=== PATIENT | female | born 1995 | race Caucasian/White ===

== ENCOUNTER → 2020-04-28 14:27 | Outpatient (BNVA) | payer MEDICAID, SELFPAY | PROVIDERS: Family Provider Family Medicine; Visit Provider Obstetrics & Gynecology | DX: Z32.01 Encounter for pregnancy test, result positive (principal) | CPT/HCPCS: 81025 ==

== ENCOUNTER 2020-05-21 11:57 | Emergency (ER) | payer MEDICAID, SELFPAY ==
[2020-05-21 12:07] VITALS: BP 143/84; PULSE 108; RESP 16; TEMP 36.2; O2SAT 99; BMI 31.6
--- NOTE | 2020-05-21 12:28 | US_ITS ---
WS: [id number] ULTRASOUND EARLY TECHNIQUE: Transabdominal sonography of the pelvis was performed. CLINICAL INFORMATION: bleeding,cramping LMP: 02/16/2020 Beta hCG: Unknown. COMPARISON: None. FINDINGS: UTERUS AND GESTATIONAL SAC Intrauterine gestations: Cervix measures 4.4 cm. Intrauterine gestational sac with pole. No cardiac activity visualized. No movement visua lized. Findings compatible with demise. Estimated gestational age: 8w6d [place] rump length (CRL): 2.2 cm. heart motion: 0 BPM. Subchorionic hemorrhage: None. OVARIES Right ovary: Normal. Left ovary: Normal. FREE FLUID None. US/ OB limited [id number] IMPRESSION: 1. Findings compatible with demise. Recommend interval follow-up for con firmation. 2. Normal adnexa and ovaries.
--- NOTE | 2020-05-21 12:28 | ED_ITS ---
HPI - General: Chief complaint: OB/Uterine Contractions Stated complaint: +PREG TEST 2 MO AGO, NOW BLEEDING/CLOTTING Time Seen by Provider: 05/21/20 12:26 History of Present Illness: HPI Narrative: Patient said she tested for about 2 months ago she was positive did 3 separate test positive each time started with some cramping and bleeding at this morning when she woke up had 1 small clot and some mild to darker blood does have slight cramping right now no bleeding presently denies vaginal discharge patient is 5 para 3, 1 miscarriage and current MD Complaint: vaginal bleeding (With cramping) Onset (ago): hour(s) Pain Consistency: colicky Location: abdomen Severity: mild Severity scale (1-10): 2 Quality: Cramping Exacerbating factors: none Vaginal discharge: none Vaginal bleeding: light Patient : Yes OB History - Current : no complications OB History - Previous Pregnancies: miscarriage care: none Associated symptoms: Reports no associated symptoms; Deny abdominal pain, headache(s), nausea or vomiting Review of Systems Const: Denies: fever(s), chills or body aches Eyes: Denies: change in vision or blurry vision ENMT: Denies: throat pain or nasal congestion Card: Denies: chest pain or dyspnea on exertion Resp: Denies: dyspnea, productive cough or non-productive cough GI: Denies: abdominal pain, nausea or vomiting : Reports: vaginal bleeding and other (Cramping) Musc: Denies: extremity pain Skin/Breast: Denies: rash Neuro: Denies: headache(s) Psych: Denies: anxiety or depression South/Lymph: Denies: easy bruising PFSH ED PFSH: Family History (Updated 05/01/20 @ 09:08 by Jeny Dukes) Denies family history of Colon cancer Ovarian cancer Diabetes Clotting disorder Heart disease Hypercholesteremia Breast cancer Bleeding disorder Hypertension Uterine cancer Thyroid disease Stroke Social History (Updated 05/01/20 @ 09:19 by Jeny Dukes) Smoking and tobacco status: former smoker Quit status (tobacco): has quit using tobacco Year quit tobacco: 2017 Alcohol intake: never Additional social history: - Tobacco use: former, quit in 2017 Alcohol use: Socially prior to Drug use: Marijuana Female Reproductive History: Para: 1 (1011) Spontaneous abortions: Yes Physical Exam Const: COMMON NORMALS: no acute distress, average body habitus and patient oriented x3 HENMT: COMMON NORMALS: normocephalic HEAD & SCALP: normal to inspection and normocephalic FACE & SINUS: normal facial exam Eye: COMMON NORMALS: conjunctivae normal GENERAL EYE: appearance normal, both eyes and all related structures CONJUNCTIVA: Yes conjunctivae normal Neck/C-Spine: COMMON NORMALS: no JVD Chest: COMMONS NORMALS: normal inspection of the chest Resp: COMMON NORMALS: normal respiratory effort Cardio: COMMON NORMALS: no JVD, regular rate and regular rhythm RATE: regular rate RHYTHM: regular rhythm GI: INSPECTION: Yes normal to inspection Extremity: COMMON NORMALS: normal to inspection and full ROM Neuro: COMMON NORMALS: patient oriented x3 Course Vital Signs: Vital signs: Vital Signs Temperature 97.2 F L 05/21/20 12:07 Pulse Rate 108 H 05/21/20 12:07 Respiratory Rate 16 05/21/20 12:07 Blood Pressure 143/84 05/21/20 12:07 Pulse Oximetry 99 05/21/20 12:07 MDM - OB/Uterine Contractions MDM Narrative: Medical decision making narrative: Discussed lab results test and radiology results with Dr. Burk. Discharge Plan Discharge Prescriptions: No Action No Known Home Medications RF: 0 Coding Level of Care Code ED Mail Distribution Scheme Examiner for Chg Fwd Exam Comprehensive
--- NOTE | 2020-05-21 13:40 | DCPLANNER ---
brand sales manager was asked to schedule a follow up appointment for patient with [facility]. brand sales manager called [facility], spoke with Sveta, a follow up appointment was scheduled for Tuesday, May 23, 2020 at 12:[address] Solis. brand sales manager informed ED physician, and patient of the scheduled appointment.
--- NOTE | 2020-06-11 13:24 | DCPLANNER ---
Patient had a follow up appointment scheduled for 05.23.20 with [facility] - patient did attend appointment.
== END 2020-05-21 13:51 | disposition home or self-care (01) ==
PROVIDERS: Emergency Provider Nurse Practitioner Family
DX: O20.9 Hemorrhage in early pregnancy, unspecified (principal); Z87.891 Personal history of nicotine dependence
CPT/HCPCS: 12345; 76815; 76817; 99281; 99283

== ENCOUNTER → 2020-05-23 13:57 | Outpatient (BNVA) | payer MEDICAID, SELFPAY | PROVIDERS: Visit Provider Obstetrics & Gynecology | DX: O03.9 Complete or unspecified spontaneous abortion without complication (principal) | CPT/HCPCS: 76857; 84702; 86850; 86900 ==

== ENCOUNTER 2022-05-05 07:26 | Outpatient (CLI) | payer SELFPAY ==
[2022-05-05] VITALS (8 sets, daily range): BP systolic 102–142; BP diastolic 62–68; PULSE 81–97; RESP 16; TEMP 35.4; BMI 36.4
--- NOTE | 2022-05-05 07:56 | US_ITS ---
WS: [id number] LIMITED OBSTETRICAL ULTRASOUND HISTORY: No care COMPARISON: None available. Presentation: Cephalic. Cervix: Closed and normal length. Simple cyst in the RIGHT adnexa measures 2.0 cm at its maximum diam eter. Placenta: Posterior, no previa. Grade: 1 HEART: FHR of 136 BPM. measurements: BPD = 6.2 cm = 25w1d HC = 23.7 cm = 25w5d AC = 20.5 cm = 25w1d FL = 4.6 cm = 25w2d MAURILIO: 13.8 cm; maximum vertical pocket 4.6 cm. EFW: 789 g; 50th %. AGA by ultrasound: 25w2d FRANCISCO by ultrasound: 08/16/2022 US/US OB limited [id number] IMPRESSION: 1. Single intrauterine gestation of 25 weeks 2 days with an EDC of 08/16/2022. 2. Normal amniotic fluid. 3. Normal cardiac activity.
[2022-05-05 08:17] LABS: Bilirubin Urine Neg (Negative); Blood Urine Neg (Negative); Glucose Urine UA Norm (Normal); Ketones Urine Negative (Negative); Leukocyte Esterase Urine 2+ (Negative); Nitrate Urine Negative (Negative); Protein Urine Neg (Negative); Specific Gravity, Urine 1.015 (1.005-1.030); Urine Appearance Clear (CLEAR); Urine Color Light Yellow (Yellow); Urobilinogen Urine Norm (Negative); pH Urine 7 (5-7)
[2022-05-05 08:22] LABS: Amphetamines Screen Urine Negative (Negative); Barbiturates Screen Urine Negative (Negative); Benzodiazepines Screen Urine Negative (Negative); Cocaine Screen Urine Negative (Negative); Opiate Screen Urine Negative (Negative); PCP Screen Urine Negative (Negative); THC Screen Urine Positive (Negative)
[2022-05-05 08:28] LABS: RBC Urine 0-4 /hpf (0-2)
[2022-05-05 08:29] LABS: Bacteria Urine 3+ /hpf; Squamous Epithelial Cell Urine 0-4 /hpf (0-5)
[2022-05-05 08:30] LABS: Add Urine Culture? Yes
[2022-05-05 09:16] LABS: Rubella IgG 25.3 IU/mL (0.0-10.0); Thyroid Stimulating Hormone 1.45 uIU/mL (0.27-4.20)
[2022-05-05 09:22] LABS: Rapid Plasma Reagin Syphilis Nonreactive (Nonreactive)
[2022-05-05 09:40] LABS: Hepatitis B Surface Antigen Non-Reactive (Nonreactive)
[2022-05-05] MEDS: cefTRIAXone 2,000 MG in sodium chloride 0.9% (plus) 50 ML 100 MG IV (09:40)
[2022-05-05 09:42] LABS: HIV 1 & 2 Antigen Non-Reactive (Non-Reactiv)
[2022-05-05 09:43] LABS: HIV 1 & 2 Antibody Non-Reactive (Non-Reactiv)
== END 2022-05-05 10:11 | disposition home or self-care (01) ==
LOC: OPOB 07:35 → OBGYN 07:36
PROVIDERS: Visit Provider Obstetrics & Gynecology
DX: O26.899 Other specified pregnancy related conditions, unspecified trimester (principal); Z3A.00 Weeks of gestation of pregnancy not specified; R10.9 Unspecified abdominal pain
CPT/HCPCS: 36415; 76815; 80306; 81001; 84443; 86592; 86762; 86850; 86900; 87077; 87086; 87186; 87340; 87491; 87591; 87806; 99211; J0696

== ENCOUNTER → 2022-06-24 12:01 | Day surgery (SDC) | payer BC, MEDICAID, SELFPAY ==
[2022-06-24 13:22] VITALS: BP 129/71; PULSE 114; RESP 18; TEMP 35.9; O2SAT 96
[2022-06-24 13:23] VITALS: BP 129/71; PULSE 114; RESP 18; TEMP 35.9; O2SAT 96
== END ==
PROVIDERS: PCP Family Medicine; Visit Provider Family Medicine
DX: O09.93 Supervision of high risk pregnancy, unspecified, third trimester (principal); Z3A.00 Weeks of gestation of pregnancy not specified; Z67.91 Unspecified blood type, Rh negative
CPT/HCPCS: 36415; 86850; 86900; 90384; 96372

== ENCOUNTER 2022-07-07 11:21 | Outpatient (CLI) | payer BC, MEDICAID, SELFPAY ==
[2022-07-07 11:53] VITALS: BP 110/72; PULSE 112
[2022-07-07 11:59] VITALS: RESP 16
[2022-07-07 12:07] LABS: Nitrazine Paper, PH Negative
[2022-07-07 12:09] VITALS: BMI 37.9
[2022-07-07 12:19] VITALS: BP 125/71; PULSE 115
[2022-07-07 12:35] LABS: Amphetamines Screen Urine Negative (Negative); Barbiturates Screen Urine Negative (Negative); Benzodiazepines Screen Urine Negative (Negative); Cocaine Screen Urine Negative (Negative); Opiate Screen Urine Negative (Negative); PCP Screen Urine Negative (Negative); THC Screen Urine Positive (Negative)
[2022-07-07 12:38] VITALS: BP 111/73; PULSE 81
[2022-07-07 12:45] LABS: Urine Appearance Cloudy (CLEAR); Urine Color Yellow (Yellow)
[2022-07-07 12:46] LABS: Add Urine Culture? Yes; Bacteria Urine 4+ /hpf; Bilirubin Urine Neg (Negative); Blood Urine Neg (Negative); Glucose Urine UA Norm (Normal); Ketones Urine Negative (Negative); Leukocyte Esterase Urine 2+ (Negative); Nitrate Urine Negative (Negative); Protein Urine Neg (Negative); Specific Gravity, Urine 1.015 (1.005-1.030); Squamous Epithelial Cell Urine TOO NUMEROUS TO CNT /hpf (0-5); Sulfosalicylic Acid Urine Negative (Negative); Urobilinogen Urine Norm (Negative); pH Urine 9 (5-7)
[2022-07-07 12:58] VITALS: BP 119/66; PULSE 117
[2022-07-07 13:13] VITALS: BP 119/66; PULSE 117; RESP 16; TEMP 36.5
== END 2022-07-07 13:13 | disposition home or self-care (01) ==
LOC: OPOB 11:29 → OBGYN 11:31
PROVIDERS: PCP Family Medicine; Visit Provider Family Medicine
DX: O26.899 Other specified pregnancy related conditions, unspecified trimester (principal); Z3A.00 Weeks of gestation of pregnancy not specified; N89.8 Other specified noninflammatory disorders of vagina
CPT/HCPCS: 59025; 80306; 81001; 83986; 87086; 99211

== ENCOUNTER 2022-07-16 07:45 | Outpatient (CLI) | payer BC, MEDICAID, SELFPAY ==
[2022-07-16] VITALS (11 sets, daily range): BP systolic 102–150; BP diastolic 59–76; PULSE 80–122; RESP 16–18
[2022-07-16 08:57] LABS: Basophils % 0.4 %; Eosinophils # 0.1 10^3/uL (0.0-0.8); Eosinophils % 0.6 %; Hematocrit 31.4 % (37.0-47.0); Hemoglobin 10.4 g/dL (11.5-15.3); Lymphocytes # 2.1 10^3/uL (0.8-4.8); Lymphocytes % 19.8 %; Mean Corpuscular HGB Conc 33.1 g/dL (30.0-36.0); Mean Corpuscular Volume 93.7 fl (81-99); Mean Platelet Volume 9.8 fL (7.4-10.4); Monocytes # 0.7 10^3/uL (0.2-0.9); Monocytes % 6.8 %; Neutrophils # 7.76 10^3/uL (1.8-7.7); Neutrophils % 71.9 %; Nucleated Red Blood Cells % 0 %; Platelet Count 157 10^3/cmm (130-400); Red Blood Count 3.35 10^6/uL (4.1-5.3); Red Cell Distribution Width 13.3 % (12.1-15.1); White Blood Count 10.8 10^3/uL (4.0-10.0)
[2022-07-16] MEDS: lactated ringers 1,000 ML 999 ML IV (08:58)
[2022-07-16 09:02] LABS: Bilirubin Urine Neg (Negative); Blood Urine 2+ (Negative); Glucose Urine UA Norm (Normal); Ketones Urine 3+ (Negative); Nitrate Urine Negative (Negative); Protein Urine Trace (Negative); Urine Appearance Cloudy (CLEAR); Urine Color Yellow (Yellow); Urobilinogen Urine 1 mg/dL (Negative); pH Urine 6 (5-7)
[2022-07-16 09:03] LABS: Add Urine Microscopic? YES; Leukocyte Esterase Urine 2+ (Negative)
[2022-07-16 09:17] LABS: Add Urine Culture? No; Bacteria Urine 4+ /hpf; Squamous Epithelial Cell Urine TOO NUMEROUS TO CNT /hpf (0-5)
[2022-07-16 09:28] LABS: Alanine Aminotransferase 6 U/L (0-33); Albumin Level 3.5 g/dL (3.5-5.2); Alkaline Phosphatase 118 U/L (35-105); Anion Gap 13.8 (5-19); Aspartate Amino Transferase 12 U/L (0-32); Blood Urea Nitrogen 6 mg/dL (6-20); Calcium 8.6 mg/dL (8.5-10.5); Carbon Dioxide 22 mmol/L (22-29); Chloride 102 mmol/L (98-107); Globulin 2.7 g/dL (1.3-4.6); Glomerular Filtration Rate 194.5 mL/min (90-130); Glucose 77 mg/dL (65-115); Osmolality Calculated 274 mOsm/kg (285-295); Potassium 3.8 mmol/L (3.5-5.1); Sodium 134 mmol/L (136-145); Total Bilirubin 0.4 mg/dL (0.15-1.2); Total Protein 6.2 g/dL (6.6-8.7); Uric Acid 5.9 mg/dL (2.4-5.7)
[2022-07-16 09:39] LABS: Urine Creatinine 179 mg/dL (28-217)
[2022-07-16 09:41] LABS: UPRO/UCREAT Ratio 0.19 mg/mg CR; Urine Protein Random 34 mg/dL
[2022-07-16] MEDS: ondansetron 2 mg/ML SDV 2 mL 4 MG IVP (10:05)
--- NOTE | 2022-07-17 10:54 | PC.NURSE ---
PATIENT BROUGHT 24 URINE BACK TODAY AT 1050. THIS GENERAL FARM MANAGER TOOK IT DOWN TO LAB.
[2022-07-17 11:42] LABS: Total Volume, Urine 725 mL; Urine Total Protein 18.8 mg/dL (0-150); Urine Total Protein 24 Hour 136.3 mg/24hr (0-150)
--- NOTE | 2022-07-17 12:12 | PC.NURSE ---
THIS FLORIST CALLED DR. ZAVALA WITH 24 HOUR URINE RESULTS, NO NEW ORDERS AT THIS TIME.
== END 2022-07-16 10:50 | disposition home or self-care (01) ==
LOC: OPOB 07:45 → OBGYN 07:55
PROVIDERS: PCP Family Medicine; Visit Provider Family Medicine
DX: O21.9 Vomiting of pregnancy, unspecified (principal); Z3A.00 Weeks of gestation of pregnancy not specified
CPT/HCPCS: 36415; 59025; 80053; 81001; 82570; 84156; 84550; 85025; 87086; 99211; J2405; J7120

== ENCOUNTER → 2022-07-20 11:22 | Outpatient (BNVA) | payer BC, MEDICAID, SELFPAY | PROVIDERS: PCP Family Medicine; Visit Provider Family Medicine | DX: Z34.90 Encounter for supervision of normal pregnancy, unspecified, unspecified trimester (principal) | CPT/HCPCS: 87081 ==

== ENCOUNTER 2022-07-21 09:13 | Outpatient (CLI) | payer BC, MEDICAID, SELFPAY ==
--- NOTE | 2022-07-21 09:30 | US_ITS ---
WS: [id number] LIMITED OBSTETRICAL ULTRASOUND HISTORY: Measuring LGA - MAURILIO/EFW COMPARISON: 05/05/2022 Presentation: Cephalic. Cervix: Closed and normal length. Placenta: Fundal and anterior. No previa or abruption. Grade: 1 HEART: FHR of 129 BPM. measurements: BPD = 8.8 cm = 35w5d; 32nd percentile HC = 32.2 cm = 36w3d 15th percentile AC = 33.3 cm = 37w1d 73rd percentile FL = 7.5 cm = 38w1d 81st percentile MAURILIO: 24.6 cm EFW: 3139 g; 75th %. AGA by ultrasound: 37w5d FRANCISCO by ultrasound: 08/06/2022 Femur length is measuring slightly greater than the remaining parameters. Appropriate growth since e prior ultrasound of 05/05/2022. US/US OB limited [id number] IMPRESSION: 1. Single intrauterine gestation of 37 weeks 5 days with an EDC of 08/06/2022. 2. Estimated weight at the 75th percentile for age. 3. Appropriate growth since 05/05/2022.
== END 2022-07-21 09:14 | disposition home or self-care (01) ==
LOC: RAD 09:15
PROVIDERS: PCP Family Medicine; Visit Provider Family Medicine
DX: O09.93 Supervision of high risk pregnancy, unspecified, third trimester (principal); Z3A.37 37 weeks gestation of pregnancy
CPT/HCPCS: 76815; 80307; 82950; 85025; 87086

== ENCOUNTER 2022-07-26 09:40 | Outpatient (CLI) | payer BC, MEDICAID, SELFPAY ==
[2022-07-26 09:51] VITALS: BP 113/69; PULSE 87
[2022-07-26 10:01] VITALS: RESP 15; TEMP 36.1
[2022-07-26 10:02] VITALS: BMI 38.2
[2022-07-26 10:03] LABS: Nitrazine Paper, PH Negative
[2022-07-26 10:12] LABS: Actim Prom Negative
[2022-07-26 10:23] VITALS: BP 98/54; PULSE 90
[2022-07-26 10:28] LABS: Bilirubin Urine Neg (Negative); Blood Urine 2+ (Negative); Glucose Urine UA Norm (Normal); Ketones Urine Negative (Negative); Leukocyte Esterase Urine 2+ (Negative); Nitrate Urine Negative (Negative); Protein Urine Neg (Negative); RBC Urine RARE /hpf (0-2); Sulfosalicylic Acid Urine Negative (Negative); Urine Appearance Hazy (CLEAR); Urine Color Straw (Yellow); Urobilinogen Urine Norm (Negative); pH Urine 8 (5-7)
[2022-07-26 10:29] LABS: Add Urine Culture? No; Bacteria Urine 2+ /hpf; Squamous Epithelial Cell Urine 25-40 /hpf (0-5)
[2022-07-26 10:36] VITALS: BP 121/69; PULSE 87
[2022-07-26 10:45] VITALS: BP 121/69; PULSE 87
== END 2022-07-26 10:45 | disposition home or self-care (01) ==
LOC: OPOB 09:41 → OBGYN 09:44
PROVIDERS: PCP Family Medicine; Visit Provider Family Medicine
DX: O26.899 Other specified pregnancy related conditions, unspecified trimester (principal); Z3A.00 Weeks of gestation of pregnancy not specified; M54.50 Low back pain, unspecified
CPT/HCPCS: 59025; 81001; 83986; 84112; 87086; 99211

== ENCOUNTER 2022-08-04 07:59 | Outpatient (CLI) | payer BC, MEDICAID, SELFPAY ==
[2022-08-04 08:04] VITALS: BP 122/81; PULSE 110
[2022-08-04 08:21] VITALS: RESP 18; BMI 38.2
[2022-08-04 08:24] LABS: Nitrazine Paper, PH Negative
[2022-08-04 08:30] VITALS: BP 117/60; PULSE 100
[2022-08-04 08:49] VITALS: BP 121/62; PULSE 89
== END 2022-08-04 09:00 | disposition home or self-care (01) ==
LOC: OPOB 07:59 → OBGYN 08:00
PROVIDERS: PCP Family Medicine; Visit Provider Family Medicine
DX: O26.899 Other specified pregnancy related conditions, unspecified trimester (principal); Z3A.00 Weeks of gestation of pregnancy not specified; N89.8 Other specified noninflammatory disorders of vagina
CPT/HCPCS: 59025; 83986; 99211

== ENCOUNTER 2022-08-11 05:55 | Inpatient (IN) | payer BC, MEDICAID, SELFPAY ==
[2022-08-11] VITALS (55 sets, daily range): BP systolic 96–211; BP diastolic 53–104; PULSE 58–131; RESP 18; TEMP 36–36.4; O2SAT 91–100; BMI 37.5
[2022-08-11 06:24] LABS: Basophils % 0.3 %; Eosinophils # 0.2 10^3/uL (0.0-0.8); Eosinophils % 1.4 %; Hematocrit 32.4 % (37.0-47.0); Hemoglobin 10.6 g/dL (11.5-15.3); Lymphocytes % 24.8 %; Mean Corpuscular HGB Conc 32.7 g/dL (30.0-36.0); Mean Corpuscular Hemoglobin 29.9 pg (28.0-34.0); Mean Corpuscular Volume 91.5 fl (81-99); Mean Platelet Volume 10.5 fL (7.4-10.4); Monocytes # 0.7 10^3/uL (0.2-0.9); Nucleated Red Blood Cells % 0 %; Platelet Count 170 10^3/cmm (130-400); Red Blood Count 3.54 10^6/uL (4.1-5.3); White Blood Count 12.1 10^3/uL (4.0-10.0)
[2022-08-11 06:46] LABS: Amphetamines Screen Urine Negative (Negative); Barbiturates Screen Urine Negative (Negative); Benzodiazepines Screen Urine Negative (Negative); Cocaine Screen Urine Negative (Negative); Opiate Screen Urine Negative (Negative); PCP Screen Urine Negative (Negative); THC Screen Urine Positive (Negative)
--- NOTE | 2022-08-11 07:35 | PM.HP ---
Providers/Chief Complaint Admitting Physician: Sahil Mancilla MD Primary Care Provider: Sahil Mancilla MD Chief Complaint: induction History of Present Illness Radha Vazquez is a 27 year old @ 39.6 weeks by 20 wk US. Preg c/b late transfer of care, h/o gDM, h/o pLTCS, h/o x 3, Rh negative, BV during 1st TM s/p treatment, h/o trichomonas, GBS positive. The patient presents for an elective induction of labor using a Cooks catheter due to desire for a . The patient has had 3 successful 's in the past. The patient cervix was fingertip in clinic. We discussed the possibility of placing a Castanon catheter to induce labor but that it would be difficult to place. The patient currently feels well. She denies any fevers, shortness of breath, cough, chest pain, nausea, vomiting, diarrhea, constipation, vaginal bleeding, leakage of fluid, dysuria. Medications/Allergies Home Medications Medication Instructions Recorded Confirmed Last Taken Type prenat.vits,frederic,[id number] 1 tab PO DAILY 06/21/22 08/11/22 08/10/22 History Allergies Allergy/AdvReac Type Severity Reaction Status Date / Time No Known Allergies Allergy Verified 08/11/22 06:08 PFSH Acute PFSH: Surgical History (Updated 08/11/22 @ 08:22 by Sahil Mancilla MD) H/O section 11/19/[address] Mancilla at [facility] Family History Denies family history of Colon cancer Ovarian cancer Diabetes Clotting disorder Heart disease Hypercholesteremia Breast cancer Bleeding disorder Hypertension Uterine cancer Thyroid disease Stroke Social History Additional social history: - Tobacco use: former, quit in 2017 Alcohol use: Socially prior to Drug use: Marijuana prior to Female Reproductive History: : 7 Para: 1 Spontaneous abortions: Yes Vitals/I&O/Wt Last Vital Signs Pulse 109 H 08/11/22 07:26 Resp 18 08/11/22 05:56 BP 137/86 08/11/22 07:26 O2 Del Method 08/11/22 05:55 Weight last 48 hrs Weight 226 lb Physical Exam Narrative: General: Alert and oriented x3 Eyes: Pupils equal round and reactive to light and accommodation Mouth: Mucous membranes moist, pharynx non-erythematous Cardiac: Regular rate and rhythm without murmurs Lungs: Clear to auscultation bilaterally without wheezes, crackles or rhonchi Abdomen: Soft, non-tender, fundus consistent with gestational age Extremities: Trace edema in the bilateral lower extremities Cervix: 08/09/-5/soft/mid Data 08/11/22 06:15 A&P Assessment and plan (1) Supervision of high risk , unspecified, third trimester: The patient presented for induction using a Cook's catheter. This was placed by myself at approximately 7:30 AM. It was difficult to place, however proper placement was confirmed. There was no bleeding with the procedure. The patient tolerated it well. We will proceed with induction using the Castanon bulb and proceed based on her progress. The patient is aware of possible risk of uterine rupture as well as the possible need for section. heart tones are currently in the mid 130s with moderate variability good accelerations with a category 1 tracing. Contractions are every 5 minutes. Patient is GBS positive we will start ampicillin after the Castanon bulb comes out. Attestations Medical Necessity Statement*: The patient will be here for greater than 2 midnights due to routine intrapartum and management of labor and delivery. Coding Level of Care Code Acute Code for Chg Fwd Diagnoses Supervision of high risk , unspecified, third trimester O09.93
[2022-08-11] MEDS: dextrose 5%-lactated ringers 1,000 ML 125 ML IV ×2 (10:49→21:06)
[2022-08-11] MEDS: oxytocin 30 UNIT/500 ML BAG IV (10:51)
[2022-08-11] MEDS: ampicillin 2,000 MG in sodium chloride 0.9% (plus) 50 ML 100 MG IV (10:59)
[2022-08-11] MEDS: ampicillin 1,000 MG in sodium chloride 0.9% (plus) 50 ML 100 MG IV ×3 (14:59→23:52)
[2022-08-11] MEDS: lactated ringers 1,000 ML 999 ML IV ×2 (18:49→20:00)
[2022-08-11] MEDS: acetaminophen 325 mg Tablet 650 MG PO (18:50)
--- NOTE | 2022-08-11 20:03 | P.ANESASSM_ITS ---
Pre-Anesthetic Assessment Height/Weight: Height 1.65 m Weight 102.512 kg Temp Pulse Resp BP O2 Del Method 97.6 F 76 18 129/60 08/11/22 13:15 08/11/22 20:00 08/11/22 05:56 08/11/22 20:00 08/11/22 05:55 Preop Diagnosis: labor epidural Familial anesthetic complications: none Was Beta Alana taken within 24 hours: N/A Was Clonidine taken within 24 hours: N/A Last Intake: 19:00 Social No alcohol and No tobacco Exam alert, oriented x 3, clear to auscultation bilaterally and regular rate & rhythm Airway Submandibular: within normal limits Cervical ROM: within normal limits Mallampati: Class II Dentition: full Pulmonary None reported CV/HEM None reported None reported Hepatic None reported GI None reported Metabolic None reported Musc/skel None reported Neuropsych None reported Anesthetic Plan ASA status: 2 Anesthesia: Regional (specify below) (epidural) Risk of > 500 ml blood loss (7ml/kg in children): No Medications/Allergies Home Medications Medication Instructions Recorded Confirmed Last Taken Type prenat.vits,frederic,[id number] 1 tab PO DAILY 06/21/22 08/11/22 08/10/22 History Allergies Allergy/AdvReac Type Severity Reaction Status Date / Time No Known Allergies Allergy Verified 08/11/22 06:08 Current Medications Generic Name Dose Route Start Last Admin Trade Name Freq PRN Reason Stop Dose Admin Acetaminophen 650 mg 08/11/22 05:56 08/11/22 18:50 Acetaminophen 325 Mg Tablet PO 650 mg Q6H PRN Administration Mild pain or temp > 100.4 Dextrose/Lactated Ringer's 1,000 mls @ 125 mls/hr 08/11/22 06:00 08/11/22 19:56 Dextrose 5%-Lactated Ringers IV Not Given .Q8H AILEEN Oxytocin 30 unit in 500 mls @ 1 mls/hr 08/11/22 10:30 08/11/22 16:00 Pitocin IV 10 milliunit/min .Q24H AILEEN 10 mls/hr Titration Protocol 1 MILLIUNIT/MIN Ampicillin Sodium 1,000 mg/ 50 mls @ 100 mls/hr 08/11/22 14:45 08/11/22 19:19 Sodium Chloride IV Infused Q4H AILEEN Infusion Protocol Lactated Ringer's 1,000 mls @ 999 mls/hr 08/11/22 18:38 08/11/22 20:00 Lactated Ringers IV 999 mls/hr .Q1H1M PRN Administration See label comments PFSH Anesthesia Surgical History (Updated 08/11/22 @ 08:22 by Sahil Mancilla MD) H/O section 11/19/[address] Mancilla at [facility] in [facility] Family History Denies family history of Colon cancer Ovarian cancer Diabetes Clotting disorder Heart disease Hypercholesteremia Breast cancer Bleeding disorder Hypertension Uterine cancer Thyroid disease Stroke Social History Additional social history: - Tobacco use: former, quit in 2017 Alcohol use: Socially prior to Drug use: Marijuana prior to Female Reproductive History : 7 Para: 1 Spontaneous abortions: Yes Data Anesthesia 08/11/22 06:15 Short CBC 08/11/22 Range/Units 06:15 WBC 12.1 H (4.0-10.0) 10^3/uL Hgb 10.6 L (11.5-15.3) g/dL Hct 32.4 L (37.0-47.0) % MCV 91.5 (81-99) fl Plt Count 170 (130-400) 10^3/cmm Neut % (Auto) 67.0 % Neut # (Auto) 8.10 H (1.8-7.7) 10^3/uL Blood Bank 08/11/22 06:15 Blood Type O Negative Rho(D) Type Negative Antibody Screen Positive Cardiac Studies: No Data to Display
--- NOTE | 2022-08-11 20:48 | ANES.PROC ---
Anesthesia Procedures Procedure/Date: 08/11/22 Epidural: Time Out Performed: Yes Consents Signed: Procedure Consent and NPO Consent Consent: requested by attending/covering physician, from patient, risks and benefits reviewed and patient agrees to proceed Lumbar Level: L3-L4 Epidural position: sitting Epidural procedure: sterile prep of area (betadine), 1% lidocaine to numb the area (3ml), 18 g needle, negative for paresthesia passed, neg for paresthesia, test dose given, 1.5% xylocaine 1:200k epi (3ml/2ml), 0.2% Ropivacaine bolus ml (5ml), placed PCEA, no systemic response, sterile dressing applied, L.U.D. no apparent complications and 0.2% Ropiavacaine @ mls/hr (13ml/hr)
[2022-08-11] MEDS: ondansetron 2 mg/ML SDV 2 mL 4 MG IVP (21:28)
[2022-08-12] VITALS (30 sets, daily range): BP systolic 97–144; BP diastolic 50–75; PULSE 57–118; RESP 16–17; TEMP 36.6–36.8; O2SAT 99
[2022-08-12] MEDS: ondansetron 2 mg/ML SDV 2 mL 4 MG IVP ×2 (01:00→10:13)
[2022-08-12] MEDS: hyDROXYzine 25 mg Capsule 50 MG PO (01:00)
--- NOTE | 2022-08-12 01:26 | ANES.PROC ---
Anesthesia Procedures Procedure/Date: 08/12/22 Epidural bolus Procedure Narrative: Pt really anxious and complaining of back pressure. Pt given 1% Lidocaine MPF with 100 mcg Fentanyl MPF via epidural. Pt tolerated well and comfortable after bolus. Will continue to monitor.
[2022-08-12] MEDS: ampicillin 1,000 MG in sodium chloride 0.9% (plus) 50 ML 100 MG IV ×2 (03:40→08:26)
--- NOTE | 2022-08-12 05:44 | PM.PN ---
Subjective Subjective: The patient had a Castanon bulb placed yesterday morning and the Castanon bulb came out at approximately 10:15 AM on 08/11/2022. The patient was having irregular contractions, so IV Pitocin was started at 1 unit every 30 minutes. This was taken up to 10 units and the patient had regular contractions every 3 minutes with this for a number of hours. By later that evening, the patient's pain was increasing so an epidural was placed. The patient's contractions began to space out, so the Pitocin was gradually increased by 1 unit every 30 minutes and is currently at 18 units. heart tones have been in the mid 150s with moderate variability and good accelerations. Her check this morning was still 5 cm and she has not made significant change. For this reason AROM was performed at approximately 5:35 AM this morning. The head was well applied prior to rupture. There is some mild bleeding from the cervix prior to rupture but the amniotic fluid was clear. There was a large amount. No umbilical cord was noted upon exam after rupture. Vitals/I&O/Wt Last Vital Signs Temp 97.6 F 08/11/22 13:15 Pulse 68 08/12/22 05:18 Resp 18 08/11/22 05:56 BP 100/52 08/12/22 05:18 Pulse Ox 100 08/11/22 20:53 O2 Del Method 08/11/22 05:55 08/11/22 08/11/22 08/12/22 14:59 22:59 06:59 Intake Total 14.15 / 14.15 3163 / 3177.15 304.550 / 3481.700 Balance 14.15 / 14.15 3163 / 3177.15 304.550 / 3481.700 Weight last 48 hrs Weight 226 lb Physical Exam Narrative: General: Alert and oriented x3 Cardiac: Regular rate and rhythm without murmurs Lungs: Clear to auscultation bilaterally without wheezes, crackles or rhonchi Abdomen: Soft, non-tender, fundus consistent with gestational age Extremities: Trace edema in the bilateral lower extremities Urinary Catheter Management: Castanon: Cath Placed During This Visit: yes Urinary Catheter Date of Insertion: 08/11/22 Urinary Catheter Time of Insertion: 20:45 Data 08/11/22 06:15 A&P Assessment and plan (1) Intrauterine : The patient has made relatively slow heel cover softener the last 24 hours. AROM was performed to help augment labor. Currently we are not seeing signs of distress. The patient's epidural is working well for her. We will continue with current care and watch for signs of complications, especially related to having a prior section. The patient is in agreement with current plan of care. All questions were answered. Attestations Medical Necessity Statement*: The patient will be here for greater than 2 midnights due to routine intrapartum and management of trial of labor after section and care. Coding Level of Care Code Acute Code for Chg Fwd Diagnoses Intrauterine Z34.90
[2022-08-12] MEDS: dextrose 5%-lactated ringers 1,000 ML 125 ML IV (06:10)
--- NOTE | 2022-08-12 11:45 | P.PCNOB_ITS ---
Delivery Note: Date of delivery: August 12, 2022 Pre-delivery diagnoses: 1. Intrauterine at 40.0 weeks gestation 2. Late transfer of care 3. History of gestational diabetes 4. History of low transverse section 5. History of x3 6. Rh- 7. BV during first trimester status posttreatment 8. History of trichomonas 9. GBS positive 10. Patient requesting TOLAC Post-delivery diagnoses: 1. Intrauterine status post spontaneous vaginal delivery () at 40.0 weeks gestation 2. Late transfer of care 3. History of gestational diabetes 4. History of low transverse section 5. Status post x4 6. Rh- 7. BV during first trimester status posttreatment 8. History of trichomonas 9. GBS positive status post multiple doses of ampicillin 10. Delivery of healthy male weighing 8 pounds 0 ounces with Apgars of 9 and 9 Procedure: Spontaneous vaginal delivery - vaginal after section Delivering Physician: Sahil Mancilla MD Estimated blood loss (mL): 250 Findings: 1. Healthy male weighing 8 pounds 0 ounces with Apgars of 9 and 9 2. Intact placenta with central umbilical cord insertion site Pre-Delivery Course: Radha Vazquez is a 27 year old G7 now [id number] status post @ 40 weeks by 20 wk US. Preg c/b late transfer of care, h/o gDM, h/o pLTCS, h/o x 3, Rh negative, BV during 1st TM s/p treatment, h/o trichomonas, GBS positive. The patient presented for an elective induction of labor using a Cooks catheter due to desire for a .? The patient had 3 successful 's in the past.? The patient's cervix was fingertip in clinic.? The patient presented on the morning of 08/11/2022 for Cook's catheter placement. This was difficult to place but was done successfully. The catheter came out on its own at approximately 10:15 AM on 08/11/2022. The patient was having sporadic contractions every 5 to 7 minutes. IV Pitocin was used to augment labor and was increased slowly at 1 unit every 30 minutes. The patient got to 10 units of IV Pitocin and was not making significant change but was having more pain. An epidural was placed. She continued to not make change so the Pitocin was gradu ally moved up to 18 units. Finally the head was well applied to the cervix and AROM was performed at 5:40 AM on 08/12/2022. A large amount of clear fluid was noted. The patient then began to make gradual change and was complete by 11:06 AM on 08/12/2022. Delivery: The patient began pushing at 11:12 AM on 08/12/2022. The delivered in the OA position at 11:18 AM on 08/12/2022. The left shoulder was anterior shoulder and it delivered with ease. The rest of the infant delivered without complication. There was no nuchal cord. The 's mouth and nose were bulb suctioned by myself. The was crying shortly after delivery. The was placed on the mother's chest where the nurses were waiting to care for him. The cord was clamped by myself and cut by the infant's father after approximately 1 minute. Cord blood was obtained. The cord was then drained of blood and traction was placed on the umbilical cord. Uterine massage was carried out and the placenta delivered without complication at 11:28 AM on 08/12/2022. IV Pitocin was bolused. The placenta was noted to be intact with a central umbilical cord insertion site. The patient had moderate to heavy bleeding initially and with uterine massage this gradually decreased. The cervix was inspected closely and no lacerations were noted. The vaginal wall was inspected and no lacerations were noted. The patient's bleeding continued to be moderate so a straight catheter was used to drain the bladder of urine. There was only a small amount. Bleeding had started to decrease but picked up again, so she has been given Cytotec 800 mcg rectally and TXA IV. We will continue to follow to be sure that her bleeding decreased as well. We will continue with the Pitocin bolus. Otherwise currently the mother and infant are doing well. History History History 7 Term 5 0 Miscarriages/Ectopic 2 Living Children 5 Past Pregnancies Del. Date GA/Weeks Outcome Route Wt Inf Gender Labor Lgth Comp. Anesth esia Location 09/09/15 spontaneous 11/19/16 39 live - full term 6 lb 15 oz Female [facility] [place] 07/11/18 39 live - full term 8 lb 3 oz Male 20 [facility] 05/31/19 38 live - full term 6 lb 11 oz Male [facility] 04/10/20 16 spontaneous 05/25/21 41 live - full term 8 lb 11 oz Male 12 [place] 08/12/22 40 live - full term 8 lb Male 30 [facility] Delivery Date: 09/09/15 Last Updated by: Sahil Mancilla MD Early miscarriage Delivery Date: 11/19/16 Last Updated by: Sahil Mancilla MD [facility] patient - [place] [facility] for arrest of descent/ intolerance, gDM on Metformin Delivery Date: 07/11/18 Last Updated by: Sahil Mancilla MD Castanon Bulb dilation - gDM on Levemir Delivery Date: 05/31/19 Last Updated by: Sahil Mancilla MD gDM - Diet controlled Delivery Date: 04/10/20 Last Updated by: Sahil Mancilla MD Miscarriage at home around 16 weeks Delivery Date: 05/25/21 Last Updated by: Sahil Mancilla MD Pitocin Delivery Date: 08/12/22 Last Updated by: Sahil Mancilla MD GBS positive, induction using Cook's catheter, Heavy bleeding after delivery s/p TXA/Cytotec A&P Assessment and plan (1) , delivered: Coding Level of Care Code Acute Code for Chg Fwd Diagnoses , delivered O34.219
[2022-08-12] MEDS: oxytocin 30 UNIT/500 ML BAG 600 UNIT IV (11:51)
[2022-08-12] MEDS: miSOPROStol 200 mcg Tablet 800 MCG PR (12:00)
--- NOTE | 2022-08-12 14:51 | ANE.PACU2 ---
Inpatient post-anesthesia follow up: Airway intact: Yes Vital signs: Temperature 97.6 F Pulse Rate 59 Respiratory Rate 17 Blood Pressure 119/66 Pulse Oximetry 100 Oxygen Delivery Me thod Room Air Oxygen Flow Rate Fraction of Inspir ed Oxygen Hydration adequate: Yes Nausea and vomiting: No Pain level: 2 Mental status: Baseline
[2022-08-12] MEDS: ibuprofen 800 mg tablet PO ×2 (15:27→21:26)
[2022-08-12] MEDS: docusate sodium 100 mg Capsule PO (21:27)
[2022-08-12] MEDS: HYDROcodone-acetaminophen 5-325 mg Tablet PO (22:36)
[2022-08-12 23:35] LABS: Hematocrit 28.4 % (37.0-47.0); Mean Corpuscular HGB Conc 31.7 g/dL (30.0-36.0); Mean Corpuscular Hemoglobin 29.9 pg (28.0-34.0); Mean Corpuscular Volume 94.4 fl (81-99); Mean Platelet Volume 10.6 fL (7.4-10.4); Platelet Count 143 10^3/cmm (130-400); Red Blood Count 3.01 10^6/uL (4.1-5.3); Red Cell Distribution Width 14.1 % (12.1-15.1); White Blood Count 13.1 10^3/uL (4.0-10.0)
[2022-08-13] VITALS (16 sets, daily range): BP systolic 107–137; BP diastolic 61–84; PULSE 49–75; RESP 15–71; TEMP 36.5–36.9; O2SAT 90–100
[2022-08-13] MEDS: ibuprofen 800 mg tablet PO ×3 (09:00→21:17)
[2022-08-13] MEDS: lactated ringers 1,000 ML 999 ML IV (10:13)
[2022-08-13] MEDS: metoclopramide 5 mg/mL SDV 2 mL 10 MG IVP (10:45)
[2022-08-13] MEDS: famotidine 20 mg/2 mL INJ IVP (10:45)
[2022-08-13] MEDS: citric acid-sodium citrate 30 mL UDC PO (10:45)
[2022-08-13] MEDS: ceFAZolin 2,000 MG in sodium chloride 0.9% (plus) 50 ML 100 MG IV (10:50)
--- NOTE | 2022-08-13 10:51 | ANES.PAUD2 ---
Documented by User: Juan Jose Styles Jr, ECONOMIC HISTORY TEACHER 08/13/22 10:52 Pre-Anesthetic Update Pre-Anesthetic Assessment: Date of Surgery/Procedure: 08/13/22 Preop Diagnosis: Undesired fertility Proposed Procedure: Operation Date: 08/13/22 11:10 Proposed Procedures p Post Bilateral Tubal Ligation(Bilateral) - Sylvia Dawson MD Any changes to Pre-Anesthetic Assessment?: No Labs Last 48hrs: Short CBC 08/12/22 Range/Units 23:30 WBC 13.1 H (4.0-10.0) 10^3/ uL Hgb 9.0 L (11.5-15.3) g/dL Hct 28.4 L (37.0-47.0) % MCV 94.4 (81-99) fl Plt Count 143 (130-400) 10^3/c mm Vitals: Temperature 97.7 F 08/13/22 05:59 Temperature Source Oral 08/13/22 05:59 Pulse Rate 62 08/13/22 05:59 Pulse Rhythm 08/11/22 05:55 Pulse Strength 3+ Normal 08/11/22 08:00 Respiratory Rate 16 08/13/22 05:59 Respiratory Effort Non-Labored 08/11/22 05:55 Respiratory Depth Normal 08/11/22 05:55 Respiratory Patter n 08/11/22 08:00 Blood Pressure 111/67 08/13/22 05:59 Blood Pressure [place] n 81 08/13/22 05:59 Blood Pressure Pos ition Right Lateral 08/13/22 05:59 Pulse Oximetry 100 08/13/22 05:59 Oxygen Delivery Me thod 08/13/22 05:59 Exam: Pre-Anes Outpt Exam: alert, oriented x 3, clear to auscultation bilaterally and regular rate & rhythm Cardiac Studies: No Data to Display Documented by User: Oscar Barrow 08/13/22 12:45 Pre-Anesthetic Update Pre-Anesthetic Assessment: Date of Surgery/Procedure: 08/13/22 Cardiac Studies: No Data to Display
--- NOTE | 2022-08-13 12:21 | W.PM.OPSUD ---
Surgery/Procedure H&P Update DATE OF PROCEDURE: August 13, 2022 DATE H&P PERFORMED: 08/11/22 H&P UPDATE INFORMATION: I have reviewed H&P completed within last 30 days, I have examined patient prior to procedure and No changes to prior documentation CHANGES TO PREVIOUS DOCUMENTATION: The patient confirms that she wants to proceed with tubal ligation. Consent signed. Will proceed with surgery PREOP DIAGNOSIS: Undesired fertility PLANNED PROCEDURE: Operation Date: 08/13/22 11:10 Proposed Procedures p Post Bilateral Tubal Ligation(Bilateral) - Sylvia Dawson MD
--- NOTE | 2022-08-13 12:23 | P.OP_ITS ---
Operative Report Date of procedure: August 13, 2022 Pre-op diagnosis: Preop Diagnosis Undesired fertility Post-op diagnosis: same Post-op findings: normal appearing uterus, partial tubes and ovaries Procedure done: partial salpingectomy with fibriectomy Specimens removed/disposition: segment of bilateral fallopian tubes to pathology Surgeon: Sylvia Dawson Anesthesia: General Estimated blood loss (mL): 5 IV fluids (mL): 500 Complications: none Findings: omentum adherent to lower uterine segment. Clamped, cut and ligated. excellent hemostasis Procedure: The patient was taken to the operating room where general anesthesia was administered and found to be adequate. She was prepped and draped in the usual fashion in the dorsal supine position. An infraumbilical incision was made and carried down to the underlying layer of fascia. The fascia was nicked in the midline and the peritoneum entered sharply with the Metzenbaum scissors. The omentum was strongly adherent to the lower segment of the uterus. The omentum was doubly clamped, cut and suture ligated. There was excellent hemostasis. The the patient was tilted to the right and the fallopian tube identified. The fallopian tube was grasped with a Cassia clamp and the clamp was walked down the tube to the fimbria. The tube was elevated and a Gonzalo clamp placed across the tube, superior to the ovary and including the fimbria. Using the metzenbaum scissors, a large segment of the tube was removed that included the fimbria. A stitch of O- monocryl was placed on the pedicles for excellent hemostasis. The patient was then tilted to the left and the same procedure performed on the right fallopian tube. there was excellent hemostasis. The fascia was closed w ith 0 Vicryl. The skin was closed with 4-0 Vicryl. 10 ml of bupivacaine was injected around the incision. The patient tolerated the procedure well. Sponge lap and needle counts were correct x3. She was taken to the recovery room in stable condition.
--- NOTE | 2022-08-13 12:46 | ANE.PACU2 ---
Inpatient post-anesthesia follow up: Airway intact: Yes Vital signs: Temperature 97.7 F Pulse Rate 62 Respiratory Rate 16 Blood Pressure 111/67 Pulse Oximetry 100 Oxygen Delivery Me thod Room Air Oxygen Flow Rate Fraction of Inspir ed Oxygen Hydration adequate: Yes Nausea and vomiting: No Pain level: 2 Mental status: Baseline
[2022-08-13] MEDS: HYDROcodone-acetaminophen 5-325 mg Tablet PO (13:53)
[2022-08-13] MEDS: morphine 4 mg/mL SDV 1 mL 2 MG IVP (16:01)
--- NOTE | 2022-08-13 16:37 | P.PN_ITS ---
Subjective Subjective: The patient had her laparoscopic bilateral tubal ligation done late this morning. She is currently having some pain related to it especially associated with breast-feeding. Otherwise she is feeling well. She has been ambulating and able to tolerate liquids by mouth. Her bleeding has been decre asing well. Vitals/I&O/Wt Last Vital Signs Temp 97.7 F 08/13/22 05:59 Pulse 62 08/13/22 05:59 Resp 16 08/13/22 05:59 BP 111/67 08/13/22 05:59 Pulse Ox 100 08/13/22 05:59 O2 Del Method 08/13/22 05:59 Physical Exam Narrative: General: Alert and oriented x3 Cardiac: Regular rhythm, mild bradycardia without murmurs Lungs: Clear to auscultation bilaterally without wheezes, crackles or rhonchi Abdomen: Soft, moderate diffuse tenderness over the abdomen in general. The uterus is firm and 2 cm below the umbilicus. Extremities: +1 pitting edema in the bilateral lower extremities Urinary Catheter Management: Castanon: Cath Placed During This Visit: yes, but has since been removed by the nurse Reason for Continuing Indwelling Catheter: Decision to DC Catheter Urinary Catheter Date of Insertion: 08/11/22 Urinary Catheter Time of Insertion: 20:45 Date Urinary Catheter Removed: 08/12/22 Time Urinary Catheter Discontinued: 11:07 Data 08/12/22 23:30 A&P Assessment and plan (1) , delivered: The patient is currently doing well status post yesterday. She is having some pain related to her tubal and at this point is not ready to be discharged home due to pain. We will recheck in the morning and if things are going well plan for discharge at that time. (2) Encounter for tubal ligation: The patient had a bilateral tubal ligation and is having some pain afterwards. We will give her a dose of morphine and monitor vitals closely. We will switch the hydrocodone to oxycodone to see if this can control pain better. Continue with other treatment at this time. Attestations Medical Necessity Statement*: The patient will be here for greater than 2 midnights due to routine intrapartum and management of labor and delivery. Coding Level of Care Code Acute Code for Chg Fwd Diagnoses , delivered O34.219 Encounter for tubal ligation Z30.2
--- NOTE | 2022-08-13 17:43 | PC.NURSE ---
1100 pt in OR
--- NOTE | 2022-08-13 17:44 | PC.NURSE ---
1200 pt in OR
[2022-08-13] MEDS: docusate sodium 100 mg Capsule PO (21:18)
--- NOTE | 2022-08-13 21:23 | PC.NURSE ---
Addendum entered by Jocelyn Barlow RN 08/13/22 23:39: rhogam picked up from blood transfusion services from [facility] at 1948. Original Note: rhogam administered at 2004 with SHEYLA as second verifying witness due to being unable to scan at time of issue. all patient safety checks double verified at bedside.
[2022-08-14 00:13] VITALS: RESP 18
[2022-08-14] MEDS: oxyCODONE-APAP 5-325 mg Tablet PO (00:13)
[2022-08-14] MEDS: alum-mag-hydroxide-sime 30 mL UDC PO (00:21)
[2022-08-14 04:44] VITALS: BP 104/65; PULSE 73; TEMP 36.6; O2SAT 95
[2022-08-14] MEDS: lanolin oint 7 gm 1 APPLIC TOPICAL (07:37)
[2022-08-14] MEDS: ibuprofen 800 mg tablet PO (09:50)
[2022-08-14] MEDS: docusate sodium 100 mg Capsule PO (09:50)
[2022-08-14] MEDS: prenatal vitamin Capsule 1 CAP PO (09:50)
[2022-08-14 09:51] VITALS: BP 114/74; PULSE 65; TEMP 36.5; O2SAT 97
--- NOTE | 2022-08-14 12:05 | PM.DCS ---
Discharge Providers Date of Admission: 08/11/22 05:55 Date of Discharge: August 14, 2022 Attending Provider at Admission: Sahil Mancilla MD Attending Provider at Discharge: Sahil Mancilla MD Primary Care Provider: Sahil Mancilla MD Diagnoses at Discharge Discharge Diagnosis (1) , delivered: Status: Acute (2) Encounter for tubal ligation: Status: Acute Other Information Additional DC diagnoses/information: 1.? Intrauterine status post spontaneous vaginal delivery () at 40.0 weeks gestation 2.? Late transfer of care 3.? History of gestational diabetes 4.? History of low transverse section 5.? Status post x4 6.? Rh- 7.? BV during first trimester status posttreatment 8.? History of trichomonas 9.? GBS positive status post multiple doses of ampicillin 10.? Delivery of healthy male weighing 8 pounds 0 ounces with Apgars of 9 and 9 11. Status post bilateral tubal ligation Procedure: Spontaneous vaginal delivery - vaginal after section? Delivering Physician: Sahil Mancilla MD? Estimated blood loss (mL): 250? Findings: 1.? Healthy infant male weighing 8 pounds 0 ounces with Apgars of 9 and 9 2.? Intact placenta with central umbilical cord insertion site Pre-Delivery Course:?? Radha Vazquez is a 27 year old G7 now P5025 status post @ 40 weeks by 20 wk US. Preg c/b late transfer of care, h/o gDM, h/o pLTCS, h/o x 3, Rh negative, BV during 1st TM s/p treatment, h/o trichomonas, GBS positive. The patient presented for an elective induction of labor using a Cooks catheter due to desire for a .? The patient had 3 successful 's in the past.? The patient's cervix was fingertip in clinic.? Delivery:?? Reason for Visit Reason for Visit: induction Brief History: Radha Vazquez is a 27 year old G7 now P5025 status post @ 40 weeks by 20 wk US. Preg c/b late transfer of care, h/o gDM, h/o pLTCS, h/o x 3, Rh negative, BV during 1st TM s/p treatment, h/o trichomonas, GBS positive. The patient presented for an elective induction of labor using a Cooks catheter due to desire for a .? The patient had 3 successful 's in the past.? The patient's cervix was fingertip in clinic.? Hospital Course Hospital Course The patient presented on the morning of 08/11/2022 for Cook's catheter placement.? This was difficult to place but was done successfully.? The catheter came out on its own at approximately 10:15 AM on 08/11/2022.? The patient was having sporadic contractions every 5 to 7 minutes.? IV Pitocin was used to augment labor and was increased slowly at 1 unit every 30 minutes.? The patient got to 10 units of IV Pitocin and was not making significant change but was having more pain.? An epidural was placed.? She continued to not make change so the Pitocin was gradually moved up to 18 units.? Finally the head was well applied to the cervix and AROM was performed at 5:40 AM on 08/12/2022.? A large amount of clear fluid was noted.? The patient then began to make gradual change and was complete by 11:06 AM on 08/12/2022. The patient began pushing at 11:12 AM on 08/12/2022.? The infant delivered in the OA position at 11:18 AM on 08/12/2022.? The left shoulder was anterior shoulder and it delivered with ease.? The rest of the delivered without complication.? There was no nuchal cord.? The infant's mouth and nose were bulb suctioned by myself.? The was crying shortly after delivery.? The was placed on the mother's chest where the nurses were waiting to care for him.? The cord was clamped by myself and cut by the 's father after approximately 1 minute.? Cord blood was obtained.? The cord was then drained of blood and traction was placed on the umbilical cord.? Uterine massage was carried out and the placenta delivered without complication at 11:28 AM on 08/12/2022.? IV Pitocin was bolused.? The placenta was noted to be intact with a central umbilical cord insertion site.? The patient had moderate to heavy bleeding initially and with uterine massage this gradually decreased.? The cervix was inspected closely and no lacerations were noted.? The vaginal wall was inspected and no lacerations were noted.? The patient's bleeding continued to be moderate so a straight catheter was used to drain the bladder of urine.? There was only a small amount.? Bleeding had started to decrease but picked up again, so she has been given Cytotec 800 mcg rectally and TXA IV.? This controlled her bleeding well. the patient has done very well without complications. She had a bilateral tubal ligation done by Dr. Dawson on 08/13/2022. She had no complications related to this. At the time of discharge, the patient is doing well. She is ambulating, voiding, passing gas and tolerating food by mouth. Her pain is currently well controlled. We will discharge her home and we discussed the use of pain medications, vitamin and iron tablets. We discussed care of her incision and routine care. The patient will follow-up with me on Tuesday or Tuesday of next week to check on her incision site. The patient is doing well overall and ready for discharge home. All questions were answered. The patient and her are in agreement with the plan of care. Physical Exam Narrative: General: Alert and oriented x3 Cardiac: Regular rhythm, mild bradycardia without murmurs Lungs: Clear to auscultation bilaterally without wheezes, crackles or rhonchi Abdomen: Soft, mild diffuse tenderness over the abdomen in general. The uterus is firm and 2 cm below the umbilicus. Incision is clean and dry without signs of infection or dehiscence. Extremities: +1 pitting edema in the bilateral lower extremities Urinary Catheter Management: Castanon: Cath Placed During This Visit: yes, but has since been removed by the nurse Reason for Continuing Indwelling Catheter: Decision to DC Catheter Urinary Catheter Date of Insertion: 08/11/22 Urinary Catheter Time of Insertion: 20:45 Date Urinary Catheter Removed: 08/12/22 Time Urinary Catheter Discontinued: 11:07 Discharge Data Studies Completed and Pending Pending at discharge Category Date Time Status Pathology: Surgical [PTH] Routine Pth 08/13/22 19:02 Ordered Laboratory Results WBC 13.1 10^3/uL (4.0-10.0) H 08/12/22 23:30 RBC 3.01 10^6/uL (4.1-5.3) L 08/12/22 23:30 Hgb 9.0 g/dL (11.5-15.3) L 08/12/22 23:30 Hct 28.4 % (37.0-47.0) L 08/12/22 23:30 MCV 94.4 fl (81-99) 08/12/22 23:30 MCH 29.9 pg (28.0-34.0) 08/12/22 23:30 MCHC 31.7 g/dL (30.0-36.0) 08/12/22 23:30 RDW 14.1 % (12.1-15.1) 08/12/22 23:30 Plt Count 143 10^3/cmm (130-400) 08/12/22 23:30 MPV 10.6 fL (7.4-10.4) H 08/12/22 23:30 Neut % (Auto) 67.0 % 08/11/22 06:15 Lymph % (Auto) 24.8 % 08/11/22 06:15 [place] % (Auto) 6.0 % 08/11/22 06:15 Eos % (Auto) 1.4 % 08/11/22 06:15 Baso % (Auto) 0.3 % 08/11/22 06:15 Neut # (Auto) 8.10 10^3/uL (1.8-7.7) H 08/11/22 06:15 Lymph # (Auto) 3.0 10^3/uL (0.8-4.8) 08/11/22 06:15 [place] # (Auto) 0.7 10^3/uL (0.2-0.9) 08/11/22 06:15 Eos # (Auto) 0.2 10^3/uL (0.0-0.8) 08/11/22 06:15 Baso # (Auto) 0.0 10^3/uL (0.0-0.1) 08/11/22 06:15 Nucleated RBC % (auto) 0 % 08/11/22 06:15 Nucleated RBCs # 0.0 /100WBC 08/11/22 06:15 Urine Opiates Screen Negative ng/mL (Negative) 08/11/22 06:00 Ur Barbiturates Screen Negative ng/mL (Negative) 08/11/22 06:00 Ur Phencyclidine Scrn Negative ng/mL (Negative) 08/11/22 06:00 Ur Amphetamines Screen Negative ng/mL (Negative) 08/11/22 06:00 U Benzodiazepines Scrn Negative ng/mL (Negative) 08/11/22 06:00 Urine Cocaine Screen Negative ng/mL (Negative) 08/11/22 06:00 U Marijuana (THC) Screen Positive ng/mL (Negative) H 08/11/22 06:00 Blood Type O Negative 08/11/22 06:15 Rho(D) Type Negative 08/11/22 06:15 Antibody Screen Positive 08/11/22 06:15 Antibody Identification Anti-D 08/11/22 06:15 Screen Negative (Negative) 08/12/22 23:30 Vitals Last Vital Signs Temp 97.7 F 08/14/22 09:51 Pulse 65 08/14/22 09:51 Resp 18 08/14/22 00:13 BP 114/74 08/14/22 09:51 Pulse Ox 97 08/14/22 09:51 O2 Del Method 08/14/22 09:51 Discharge Plan Discharge Patient Disposition: Home Condition: Good Prescriptions: New ibuprofen 800 mg Tablet 800 mg PO TID Qty: 60 0RF oxycodone-acetaminophen 5-325 mg Tablet 1 tab PO Q6H PRN (Reason: Moderate To Severe Pain) Qty: 20 0RF ferrous sulfate 325 mg (65 mg iron) tablet 325 mg PO BID Qty: 30 0RF Continued prenat.vits,frederic,[id number] Tablet 1 tab PO DAILY Discharge Orders: Discharge Order (Routine); Ordered 08/14/22 Ordered By: Sahil Mancilla Referrals: Sahil Mancilla MD [Primary Care Provider] - 08/17/22 (Please call Dr Mancilla's office on Tuesday morning to make appt for Tuesday or ) Discharge Diet: Regular Discharge Activity: Limit activity as instructed Patient Instructions: Depression (DC), Bleeding (DC), Preeclampsia and Eclampsia After Delivery (GEN), Tubal Ligation (DC), OB Discharge Report, OB Food/Drug Interaction Guide, Opioid Safety, OB [facility], OB Vaginal Deliveries Activity Restrictions/Additional Instructions: Do not lift anything over 15 pounds for the first 2 weeks, then gradually increase. Nothing per vagina for 6 weeks. Discharge Attestations Time Spent in Discharge Care*: greater than 30 min Quality Metrics Clinical Quality Measures [ No reported AMI, CVA or VTE this stay] Coding Level of Care Code Acute Code for Chg Fwd Diagnoses , delivered O34.219 Encounter for tubal ligation Z30.2
[2022-08-14 12:16] VITALS: BP 124/74; PULSE 68; RESP 16; TEMP 37; O2SAT 98
[2022-08-14 13:39] VITALS: BP 124/74; PULSE 68; RESP 16; TEMP 37; O2SAT 98
== END 2022-08-14 13:15 | disposition home or self-care (01) | DRG 797 ==
PROVIDERS: Obstetrics & Gynecology; Admitting Provider Family Medicine; PCP Family Medicine; Visit Provider Family Medicine
PROC: 0UB70ZZ Excision of Bilateral Fallopian Tubes, Open Approach (ICD-10-PCS; CPT 58605; principal; 2022-08-13 11:00)
DX: O99.824 Streptococcus B carrier state complicating childbirth (principal); O36.0930 Maternal care for other rhesus isoimmunization, third trimester, not applicable or unspecified; Z37.0 Single live birth; Z3A.40 40 weeks gestation of pregnancy; Z87.891 Personal history of nicotine dependence; O34.211 Maternal care for low transverse scar from previous cesarean delivery; Z30.2 Encounter for sterilization; O99.324 Drug use complicating childbirth; F12.90 Cannabis use, unspecified, uncomplicated
CPT/HCPCS: 36415; 36430; 51702; 58605; 59025; 59409; 80306; 80503; 85025; 85027; 85460; 86850; 86870; 86900; 88302; 90384; 96374; J0290; J0690; J1100; J1885; J2270; J2405; J2590; J2704; J2710; J2765; J2795; J3010; J3490; J7120; J7121